=== PATIENT | female | born 1940 | race Two or more races ===

== ENCOUNTER 2017-11-25 18:17 | Emergency (ER) | payer SELFPAY ==
[~2017-11-25] VITALS: Ht 152.4 cm; Wt 68.0 kg
[2017-11-25 19:47] VITALS: BP 154/66
[2017-11-25] MEDS ORDERED: SODIUM CHLORIDE 0.9% 1,000 ML IV ONE (20:00)
[2017-11-25] MEDS ORDERED: FAMOTIDINE INJECTION 40 MG in SODIUM CHL 0.9% 100 ML IV ONE (20:00)
[2017-11-25] MEDS ORDERED: EPINEPHrine HCL 1 MG/1 ML AMP IM ONE (20:00)
[2017-11-25] MEDS ORDERED: diphenhdrAMINE HCL 50 MG/1 ML VL IV ONE (20:00)
[2017-11-25] MEDS ORDERED: FAMOTIDINE (10MG/ML) 2ML VL IV ONE (20:06)
== END 2017-11-25 21:04 | disposition home or self-care (01) ==
LOC: ER 18:17
DX: T78.40XA Allergy, unspecified, initial encounter (principal); M54.9 Dorsalgia, unspecified
CPT/HCPCS: 96365; 96372; 96375; 99284; J0171; J1200; J3490; 96361

== ENCOUNTER 2020-01-07 12:12 | Emergency (ER) | payer MEDICAID, OTHER ==
[~2020-01-07] VITALS: Ht 152.4 cm; Wt 68.0 kg
[2020-01-07 12:20] VITALS: BP 163/60
== END 2020-01-07 14:22 | disposition home or self-care (01) ==
LOC: EDBD 12:12 → ER 12:12 → MERGE 12:12 → ER 14:22
DX: J20.9 Acute bronchitis, unspecified (principal); Z20.828 Contact with and (suspected) exposure to other viral communicable diseases
CPT/HCPCS: 36415; 71045; 87426